=== PATIENT | male | born 1945 | race Caucasian/White ===

== ENCOUNTER 2018-05-26 12:58 | Observation (INO) | payer MEDICARE ==
[2018-05-26 13:31] LABS: #Basophils 0.1 thou/uL (0.0-0.2); #Eosinphils 0.2 thou/uL (0.0-0.7); #Monocytes 0.7 thou/uL (0.11-0.59); #Neutrophils 6.2 thou/uL (1.40-6.50); %Basophils 0.7 % (0.0-1.0); %Eosinophils 1.6 % (0.0-10.0); %Lymphocytes 29.5 % (21.0-51.0); %Monocytes 6.9 % (0.0-10.0); %Neutrophils 61.3 % (42.0-75.0); Hemoglobin 17.2 g/dL (14.0-18.0); Mean Corpuscular HGB CONC 33.1 g/dL (32.0-36.0); Mean Corpuscular Hemoglobin 30.3 pg (27.0-31.0); Mean Corpuscular Volume 91.4 fL (78.0-98.0); Mean Platelet Volume 7.5 fL (7.4-10.4); Platelet Count 259 thou/uL (130-400); RBC Distribution Width 12.5 % (11.5-14.5); White Blood Cell (WBC) Count 10.2 thou/uL (4.8-10.8)
[2018-05-26 13:51] LABS: ALT (SGPT) 24 U/L (8-55); AST (SGOT) 22 U/L (5-34); Albumin 4.1 g/dL (3.4-4.8); Alkaline Phosphatase 83 U/L (40-150); Anion Gap 14 mmol/L (10-20); BUN (Urea Nitrogen) 14 mg/dL (8.4-25.7); Bilirubin, Total 0.6 mg/dL (0.2-1.2); Calc. Creatinine Clearance 0 mL/min (70-130); Calcium 9.5 mg/dL (7.8-10.44); Carbon Dioxide 24 mmol/L (23-31); Chloride 103 mmol/L (98-107); Estimated GFR-MDRD 56; Globulin 3.5 g/dL (2.4-3.5); Glucose 173 mg/dL (83-110); Potassium 3.6 mmol/L (3.5-5.1); Protein, Total 7.6 g/dL (5.8-8.1); Sodium 137 mmol/L (136-145)
[2018-05-26] MEDS ORDERED: Lidocaine 1% w/Epinephrine 1:100K 20 ML VIAL ONE (15:41)
[2018-05-26] MEDS ORDERED: Ketorolac Tromethamine 30 MG/ML VIAL ONE (15:43)
[2018-05-26] MEDS ORDERED: HYDROcodone/Acetaminophen 10/325 mg Tablet ONE (15:43)
--- NOTE | 2018-05-26 15:50 | CT ---
HEAD CT WITHOUT CONTRAST: 05/26/18 HISTORY: Fall. Loss of consciousness. COMPARISON: None. TECHNIQUE: Noncontrast head CT is performed from skull base to skull vertex. FINDINGS: There is asymmetric hypoattenuation of the left tentorium suggesting a subdural hematoma. No parenchy mal hemorrhage. No parenchymal mass, mass effect or midline shift. Age appropriate atrophy. Cortical roberts-white matte r differentiation is preserved. Ventricles and sulci are patent and symmetric. White matter hypodensities or chronic small vessel isc hemic change. Intact calvarium. Small amounts of swelling and edema in the left parietal scalp near the posterior v ertex. Adequate aeration of the sinuses and mastoid air cells. IMPRESSION: 1. Left tentorial subdural hematoma. 2. Posttraumatic changes involving the posterior left parietal scalp near the vertex. Results of the study discussed with Dr. Pizarro 05/26/18 at 3:42 p.m. Code CR POS: [facility]
[2018-05-26 16:02] LABS: INR-International Normal Ratio 0.9; PTT 25.3 SEC (22.9-36.1); Prothrombin Time 12.6 SEC (12.0-14.7)
[2018-05-26 16:07] LABS: CKMB 1.2 ng/mL (0-6.6); Troponin I Less than 0.010 ng/mL (< 0.028)
--- NOTE | 2018-05-26 16:19 | RAD ---
PELVIS ONE VIEW: 05/26/18 HISTORY: Fall. Pain. COMPARISON: None. FINDINGS: There is a left acetabular posterior wall fracture. Contour of both femoral heads are maintained. Sac ral ala are preserved. IMPRESSION: Left posterior wall acetabular fracture. POS: [facility]
--- NOTE | 2018-05-26 18:17 | HP ---
DATE OF ADMISSION: 05/26/2018 REQUESTING PHYSICIAN: Loc Pizarro D.O. ATTENDING SURGEON: Buster Estrada M.D. CONSULTATIONS: Neurosurgery, Dr. Ramirez. HISTORY OF PRESENT ILLNESS: The patient is a 73-year-old man [facility] after waking up in his home with blood on the floor and lacerations to the posterior of his head. Patient last remembered taking his boots off and then waking up, the patient is unsure how lo ng he may have been unconscious. He underwent evaluation and examination here and was noted to have a subdural hematoma, at which time we were asked to evaluate the patient for admission and obtain zo rosurgical consultation. Currently, the patient denies headache, nausea, vomiting, dizziness. The l acerations on his posterior scalp had been repaired in the emergency department utilizing sutures and shekhar. ALLERGIES: None. CURRENT MEDICATIONS: The patient's family member was getting his list of medications, but he reports he takes 2 blood pressure medicines, cholesterol medicine, baby aspirin, and a medicine for his isabel cea. PAST SURGICAL HISTORY: Colon resection after perforation from colonoscopy and bladder resection. SOCIAL HISTORY: The patient lives independently at home. He drinks one beer maybe once or twice a w [facility]. He quit smoking more than 20 years ago. Denies drug use. REVIEW OF SYSTEMS: Ten-point review of systems negative as otherwise stated. PHYSICAL EXAMINATION: VITAL SIGNS: Blood pressure 143/80, heart rate 93, respirations 18, oxygen saturation 97% on room ai r, temperature is 97.9. GENERAL: The patient is resting comfortably in ER bed. He is awake, alert, and oriented x3. Glasgo w coma scale is 15. HEENT: Patient has two small lacerations that have been repaired on the posterior of his scalp utili zing sutures and shekhar for the different lacerations. Eyes: Extraocular motion intact. PERRLA bi laterally. Ears, atraumatic without discharge. Nose atraumatic without discharge. Oropharynx is cl ear. NECK: Nontender. Trachea is midline. No JVD. CHEST: Clear to auscultation with good inspiratory and expiratory effort. HEART: Regular rate and rhythm. ABDOMEN: Soft, flat, nontender with active bowel sounds. Pelvis is stable. EXTREMITIES: Neurovascularly intact x4. BACK: Atraumatic and nontender. LABORATORY DATA: White blood cell count 10.2, hemoglobin 17.2, hematocrit 52.0, platelets 259. Sodi um 137, potassium 3.6, chloride 103, CO2 of 24, BUN 14, creatinine 1.26, glucose 173. LFTs are unrem arkable. CK-MB is 1.2, troponin is less than 0.010. BNP is 10. RADIOGRAPHIC FINDINGS: CT of the brain without contrast shows a left tentorial subdural hematoma and post-traumatic changes involving the parietal scalp. AP pelvis shows a left posterior wall acetabul ar fracture. ASSESSMENT AND PLAN: 1. Status post fall. 2. Subdural hematoma. 3. Left acetabular fracture. 4. Syncope. Plan will be to admit the patient to the telemetry floor. We will get orthostatic vitals done here i n the emergency department. Obtain films of his left hip. Make orthopedic consultation. We have al so ordered a carotid ultrasound and the plan per Neurosurgery is to repeat his head CT in the morning or sooner as needed. The evaluation, examination, laboratory and radiographic findings will be disc ussed with Dr. Estrada after this dictation.
--- NOTE | 2018-05-26 18:33 | RAD ---
LEFT HIP TWO VIEWS: 05/26/18 INDICATION: Fall at home with positive loss of consciousness. COMPARISON: Prior pelvic radiograph dated 05/26/18. FINDINGS: There is a mild displaced posterior wall left acetabular fracture. No additional fracture is evident. IMPRESSION: Mild displaced posterior wall fracture of the left acetabulum. POS: [facility]
[2018-05-26 19:23] LABS: Bilirubin Negative (Negative); Blood, Urine Negative (Negative); Clarity CLEAR (Clear); Glucose, Urine (Dipstick) 500 mg/dL (Negative); Leukocyte Negative (Negative); Nitrite Negative (Negative); Protein, Urine (Dipstick) Negative (Neg-Trace); Specific Gravity, Urine 1.019 (1.002-1.036); Urobilinogen 0.2 mg/dL (0.2-1.0)
[2018-05-26] MEDS ORDERED: Ondansetron ODT 4 MG TAB PO PRN (19:52)
[2018-05-26] MEDS ORDERED: Ondansetron HCl/PF 4 MG/2 ML Vial IVP PRN (19:52)
[2018-05-26] MEDS ORDERED: traMADol HCl 50 MG TAB PO PRN (19:52)
[2018-05-26] MEDS ORDERED: Dextrose 50% Abboject 50 ML SYRINGE SLOW IVP PRN (19:52)
[2018-05-26] MEDS ORDERED: Dextrose 5% in Water 1,000 ML IV PRN (19:52)
[2018-05-26] MEDS: Famotidine 20 MG TAB PO SCH (20:53)
[2018-05-26] MEDS: Acetaminophen 1,000 MG in Premix Bag 1 BAG IVPB SCH (21:03)
--- NOTE | 2018-05-26 22:08 | CON ---
DATE OF CONSULTATION: 05/26/2018 HISTORY OF PRESENT ILLNESS: Mr. Botello is a 73-year-old male who was brought to the emergency department for a fall. Neurosurgery was consulted because a CT of the head found a small left-sided tentorial subdural. Upon entering the room , Mr. Botello is resting in his hospital room. He is alert and oriented to person , place, and time. He has a large laceration on the posterior aspect of his skull that is being sewn up and closed. Patient does not remember the fall. He does not know how it happened. He remembers visiting family earlier in the day. He remembers driving home and then he remembers being in the kitchen cleaning up blood on the back of his head. Patient states that he knows that he was in the entry way to his house because that is where he found his glasses. The patient denies any headache. He states that his head hurts where the laceration is, but there is no headache. He denies any dizziness or numbness or tingling anywhere in his body. He denies any weakness. He states that he did vomit while at home prior to coming to the emergency room. REVIEW OF SYSTEMS: Patient denies any fever or chills. Denies any dizziness, changes in vision, or changes in hearing. Denies any difficulty swallowing, sore throat, or abdominal pain. Denies chest pain, palpitations, nausea. No diarrhea, constipation, or difficulty with bladder. He has a large laceration on the posterior aspect of the skull. No numbness or tingling. MEDICATIONS: Amlodipine, hydrochlorothiazide, atorvastatin, pantoprazole, doxycycline, baby aspirin. ALLERGY: [id number] PILL, ZOLPIDEM, ROPINIROLE. PAST MEDICAL HISTORY: Hypertension, hypercholesterolemia. PAST SURGICAL HISTORY: Part of his bladder was removed. SOCIAL HISTORY: Patient lives in [place] in his home alone. He quit smoking 10 years ago. He has occasional beer and denies any other illicit drugs. He is a retired career development associate. PHYSICAL EXAMINATION: VITAL SIGNS: Temperature 97.6, heart rate 88, respiratory rate 20, blood pressure 121/82, O2 is 100% on room air. GENERAL: The patient is alert and oriented. He is resting comfortably in his hospital bed. He is nontoxic, afebrile, normotensive. HEENT: Head is normocephalic. He has a laceration that is closed on the posterior aspect of his head. Pupils are equal, round, reactive to light. Extraocular movements are intact. Hearing is intact. Moist mucous membranes. NECK: Normal range of motion. No tenderness to palpation. No masses or organomegaly. RESPIRATORY: Normal work of breathing room air. CARDIOVASCULAR: Regular rate and rhythm, normal S1, S2. MOTOR: The patient is moving all 4 extremities well, 5/5 strength bilaterally and cinetechnician deltoids, biceps, triceps, hip flexion, knee flexion, extension, dorsiflexion, plantar flexion. There is no asymmetry in sensation. NEUROLOGIC: The patient is alert and oriented to person, place, and time. Speech is spontaneous and fluent. Normal fund of knowledge. Normal long-term memory. He has some amnesia surrounding the event on the fall for a few minutes. Cranial nerves II-XII are tested and intact. There is no focal motor or sensory deficits. Normal coordination [id number]. IMAGING: CT head, left tentorial subdural hematoma, posttraumatic changes involving posterior left parietal scalp near the vertex. ASSESSMENT AND PLAN: Mr. Botello has sustained a traumatic subdural hematoma on the left tentorial area. He is currently awake, alert, does not have any focal neurologic or motor deficits. The patient, however, is unsure of the fall. Trauma service will admit this pt. to work up why he fell. We will monitor the patient overnight. Get a repeat CT in the morning. We have advised that there are no blood thinners should be given to the patient. We will get neuro checks every 4 hours. At this time, there is no surgical intervention necessary. NATHANAEL
[2018-05-26 23:02] VITALS: BMI 26.2
[2018-05-27] MEDS: Acetaminophen 1,000 MG in Premix Bag 1 BAG IVPB SCH ×2 (03:42→09:13)
[2018-05-27 04:54] LABS: #Basophils 0.1 thou/uL (0.0-0.2); #Eosinphils 0.1 thou/uL (0.0-0.7); #Lymphocytes 2.4 thou/uL (1.20-3.40); %Basophils 0.7 % (0.0-1.0); %Eosinophils 1.3 % (0.0-10.0); %Lymphocytes 27.8 % (21.0-51.0); %Monocytes 11.5 % (0.0-10.0); %Neutrophils 58.7 % (42.0-75.0); Hemoglobin 15.3 g/dL (14.0-18.0); Mean Corpuscular HGB CONC 33.6 g/dL (32.0-36.0); Mean Corpuscular Hemoglobin 30.9 pg (27.0-31.0); Mean Corpuscular Volume 92.1 fL (78.0-98.0); Mean Platelet Volume 7.7 fL (7.4-10.4); Platelet Count 230 thou/uL (130-400); RBC Distribution Width 12.6 % (11.5-14.5); Red Blood Cell (RBC) Count 4.93 mill/uL (4.70-6.10); White Blood Cell (WBC) Count 8.5 thou/uL (4.8-10.8)
[2018-05-27 05:08] LABS: Anion Gap 10 mmol/L (10-20); BUN (Urea Nitrogen) 13 mg/dL (8.4-25.7); Calc. Creatinine Clearance 72 mL/min (70-130); Calcium 8.7 mg/dL (7.8-10.44); Carbon Dioxide 31 mmol/L (23-31); Chloride 102 mmol/L (98-107); Estimated GFR-MDRD 63; Glucose 164 mg/dL (83-110); Potassium 3.5 mmol/L (3.5-5.1); Sodium 139 mmol/L (136-145)
[2018-05-27] MEDS ORDERED: rOPINIRole HCl 0.5 MG TAB PO PRN (08:21)
--- NOTE | 2018-05-27 08:34 | PRG ---
DATE OF SERVICE: 05/27/2018 I personally interviewed and examined the patient and agree with documentation of Mackenzie Navarro PA-C., dated 05/26/2018. Briefly, Nicolas Botello is a 73-year-old gentleman, who ran a few errands in the car yesterday, came to his garage, sat down to take his boots off and that is the last thing he remembers. He was brought to the emergency department after found down with lacerations to the scalp and a CT examination of th e brain showing a tentorial subdural hematoma. It is unknown what the etiology of the fall is. Ther e is some report that Mr. Botello got about a pelvic bony injury, but he has been out of bed all night walking back and forth to the restroom without significant pain. Mr. Botello does not remember any other events of the fall. Vital signs overnight have been stable. Blood pressure this morning is 153/72. On examination, Mr. Botello is wide awake. His eyes are already open. He is reading the menu for this morning. He is per fectly conversant. He has good cognitive function. He has normal cranial nerve function. There is no lateralizing motor or sensory deficits I can appreciate. I reviewed a CT scan of the brain this m orning. It shows decrease in the hyperdensity over the tentorium. Mr. Botello's neurological examination is normal. His CAT scan is improving, and from the Neurosurgery perspective, he can be discharged home. We will follow up with him in 2-3 weeks with another CAT ugo frankel
[2018-05-27] MEDS ORDERED: Amlodipine 5 mg/Benazepril 20 mg CAP PO SCH (09:00)
[2018-05-27] MEDS ORDERED: Atorvastatin Calcium 10 MG TAB PO SCH (09:00)
[2018-05-27] MEDS ORDERED: Doxycycline 100 MG CAP PO SCH (09:00)
[2018-05-27] MEDS ORDERED: Hydrochlorothiazide 25 MG TAB PO SCH (09:00)
[2018-05-27 09:04] LABS: Hemoglobin A1c 7.9 % (4.0-6.0)
[2018-05-27] MEDS: Famotidine 20 MG TAB PO SCH (09:32)
--- NOTE | 2018-05-27 09:48 | ULT ---
CAROTID ULTRASOUND WITH WEBSTER SCALE AND DOPPLER DUPLEX COLOR FLOW IMAGING SPECTRAL ANALYSIS PERFORMED: CLINICAL INDICATION: Syncope. FINDINGS: There is mild scattered atherosclerotic calcification of the carotid arteries. PEAK SYSTOLIC VELOCITY (CM/S): Right CCA 97 Left CCA 117 Right ICA 89 Left ICA 96 There is antegrade flow within the visualized bilateral vertebral arteries. IMPRESSION: 1. No hemodynamically significant stenosis of the right internal carotid artery. 2. No hemodynamically significant stenosis of the left internal carotid artery. POS: [facility]
--- NOTE | 2018-05-27 11:28 | CT ---
PRELIMINARY REPORT/[facility]/EMERGENTY AFTER-HOURS PROCEDURE CT Head Without Intravenous Contrast CLINICAL HISTORY: 73 years old, male; Condition or disease; Other: F/u sdh TECHNIQUE: Axial computed tomography images of the head/brain without intravenous contrast. COMPARISON: CT Brain WO Con 05/26/2018 3:33 PM FINDINGS: As before, small amount of subdural blood layering along the left tentorium. No significant interval change in appearance. No definite new hemorrhage in the interval. No significant mass effect or midline shift. Ventricle size is normal for age. No definite acute infarct by CT. No definite acute skull fracture. Included paranasal sinuses are essentially clear. IMPRESSION: As before, small amount of subdural blood layering along the left tentorium, not significantly change d. No definite new hemorrhage in the interval. Other findings discussed above. Thank you for allowing us to participate in the care of your patient. Dictated and Authenticated by: Jw Fontana MD 05/27/2018 5:30 AM Central Time ([place] & [place]) FINAL REPORT HEAD CT WITHOUT CONTRAST: COMPARISON: 05/26/2018. HISTORY: Followup subdural hematoma. FINDINGS: This report is in agreement with the preliminary report by [facility]. Interval placement of skin shekhar p rojecting over the left scalp. Stable left subdural hematoma, along the tentorium. No significant i nterval change. POS: [facility]
--- NOTE | 2018-05-27 11:32 | CT ---
PRELIMINARY REPORT/[facility]/EMERGENTY AFTER-HOURS PROCEDURE CT Pelvis Without Intravenous Contrast CLINICAL HISTORY: 73 years old, male; Condition or disease; Other: Left acetabular FX; Patient HX: Eval for left acetab ular FX TECHNIQUE: Axial computed tomography images of the pelvis without intravenous contrast. COMPARISON: No relevant prior studies available. FINDINGS: Well-defined lucency extends through the posterior rim of the left acetabulum. However, the appearanc e does not strongly suggest an acute fracture, as the opposing bony margins appear relatively smooth and well corticated. There is no associated soft tissue hematoma. This appearance may well represent sequela of old injury and/or be related to degenerative bony spurr ing. Regardless, I think an acute fracture involving this location is unlikely. Please correlate clinicall y. Eventual comparison with any available prior exams might be helpful. No visible fracture or dislocation of either femoral head or neck. If there is continued clinical suspicion for hip fracture, MRI could be more sensitive than CT for de tecting occult/subtle fractures. No definite fracture of the other included bones of the pelvis. No definite/significant diastases of either SI joint, or the symphysis pubis. Mild degenerative disc changes in the lower lumbar spine. Moderate to severe facet joint arthritis in the lower lumbar spine. The urinary bladder appears somewhat distended at the time of scanning. Please correlate clinically. Small posterior urinary bladder diverticula bilaterally. Larger on the left measures 20 mm. Smaller o n the right measures 15 mm. Small bilateral inguinal hernias, containing no bowel, larger on the left. IMPRESSION: Well-defined lucency extends through the posterior rim of the left acetabulum. However, the appearance does not strongly suggest an acute fracture. See above details/discussion. This appearance may well represent sequela of old injury and/or be related to degenerative bony spurr ing. No visible fracture or dislocation of either femoral head or neck. No definite fracture of the other included bones of the pelvis. Other findings discussed above. Thank you for allowing us to participate in the care of your patient. Dictated and Authenticated by: Jw Fontana MD 05/27/2018 7:10 AM Central Time ([place] & [place]) FINAL REPORT CT PELVIS WITHOUT CONTRAST: HISTORY: Left acetabular fracture. FINDINGS: This report is in agreement with the preliminary report by [facility] [[email or web address] There is a lucency on the posterior rim of the left acetabulum. However, CT features suggest a remote injury. No definite evidence of a n acute fracture. POS: [facility]
[2018-05-27 12:06] VITALS: TEMP 98.2
[2018-05-27 12:07] VITALS: BP 128/67
--- NOTE | 2018-05-27 14:25 | CON ---
DATE OF CONSULTATION: 05/27/2018 CONSULTING PHYSICIANS: Trauma staff and Suman Barnes M.D. HISTORY OF PRESENT ILLNESS: Mr. Botello is a 73-year-old male who suffered syncopal episode on the . The patient had a closed head injury with laceration of scalp, subdural hematoma. The patient is being currently worked up by Trauma team for syncopal episode. There is some question about possible left acetabular fracture. The patient is currently resting in bed comfortable, complaining of no hip pain, has been ambulating without difficulty. PAST MEDICAL HISTORY: Hypertension, hypercholesterolemia. PAST SURGICAL HISTORY: Bladder resection. ALLERGIES: No known drug allergies. MEDICATIONS: Please see admission list. SOCIAL HISTORY: One beer a couple of times a week, a former smoker, lives at home alone, [place] The patient is retired. His daughter and are at bedside. REVIEW OF SYSTEMS: Noncontributory. PHYSICAL EXAMINATION: VITAL SIGNS: 98.7, 78, 16, 97%, 150/79. GENERAL: Alert male in no acute distress, resting comfortably in bed. EXTREMITIES: Left lower extremity, the patient has no pain with range of motion of his left hip. Full range of motion, flexion, abduction, internal and external rotation. He is neurovascularly intact distally with stable knee, no effusion, no swelling, no ecchymosis or erythema noted in the left hip. In the patient's right hand, he has locking at the A1 jose, tenderness at the A1 jose. Neurovascularly intact, 2+ radial pulse, soft. No swelling. Soft compartments. LABORATORY AND X-RAY FINDINGS: Radiographs of his pelvis show a potential avulsion fracture versus a chronic degenerative change. CT scan through the pelvis showed what appears to be a chronic degenerative change of his posterior acetabulum versus chronic healed fracture. The patient's head is reduced as the fragment was not large enough to make hip unstable. The patient's hip was reduced without signs of damage and there was osteophyte formation. IMPRESSION: 1. Left hip degenerative changes. 2. Right trigger thumb. ASSESSMENT AND PLAN: The patient to weightbear as tolerated in his bilateral lower extremities. He can follow up and the patient was given my card to follow up with me in 2 weeks for his trigger thumb on his right hand, so we can perform an injection. [facility]
--- NOTE | 2018-05-27 15:28 | HP ---
DATE OF ADMISSION: 05/27/2018 CHIEF COMPLAINT: Fall. HISTORY: This is a 73-year-old male who woke last night with blood on the floor and a laceration on the back of his head. He does not recall falling. He was taken by ambulance to the hospital where beto myers was found to have a subdural hematoma. He denies any other complaints, no pain, no numbness, no sh ortness of breath. PAST MEDICAL HISTORY: Hypertension, hyperlipidemia, rosacea. PAST SURGICAL HISTORY: He had a colon repair after a perforation from colonoscopy. He has had a joe dder resection. SOCIAL HISTORY: He drinks occasional beer. No tobacco. He is retired. FAMILY HISTORY: Noncontributory. ALLERGIES: He has no known drug allergies. MEDICATIONS: He is on blood pressure medicine and hyperlipidemia medicine. PHYSICAL EXAMINATION: VITAL SIGNS: Temperature 97.7, pulse 70, blood pressure 150/79. GENERAL: He is awake, alert, does not appear to be in any distress. HEENT: He has got shekhar in his scalp. NECK: Supple, nontender. Trachea midline. No facial trauma. LUNGS: Clear. CHEST: Chest wall is nontender. ABDOMEN: Soft, nondistended, slightly obese. No palpable masses. No tenderness. EXTREMITIES: Unremarkable. He is not tender in the left groin. IMAGING: He had a plain film of the left hip showing an acetabular fracture. Carotid study shows no significant stenosis. Brain study shows a subdural hematoma on the left tentorium, which is stable from yesterday. CT of the pelvis shows that this acetabular fracture is old. On further interrogati on, he says he remembers getting kicked as a teenager by a horse in his left groin. LABORATORY DATA: His white count is 8.5, H and H 15 and 45, platelet count 230,000. Electrolytes ar e fine. ASSESSMENT: Fall with subdural hematoma, stable. PLAN: Per Neurosurgery.
== END 2018-05-27 13:53 | disposition home or self-care (01) ==
LOC: ERS 12:58 → EDBD 19:45 → 2SW 19:45
PROVIDERS: ADMIT Surgery; ATTEND Surgery
DX: S06.5X9A Traumatic subdural hemorrhage with loss of consciousness of unspecified duration, initial encounter (principal); S01.81XA Laceration without foreign body of other part of head, initial encounter; L71.9 Rosacea, unspecified; E78.00 Pure hypercholesterolemia, unspecified; M65.311 Trigger thumb, right thumb; I10 Essential (primary) hypertension; Z87.891 Personal history of nicotine dependence; Z79.82 Long term (current) use of aspirin; Z79.899 Other long term (current) drug therapy; Z90.49 Acquired absence of other specified parts of digestive tract; Z90.6 Acquired absence of other parts of urinary tract; Z88.8 Allergy status to other drugs, medicaments and biological substances; W19.XXXA Unspecified fall, initial encounter
CPT/HCPCS: 12002; 70450 ×2; 72170; 72192; 73502; 80048; 80053; 81003; 82553; 82962; 83036; 83735; 83880; 84484; 85025 ×2; 85610; 85730; 93005; 93880; 96374; 96376; 97139; 99285; G0378 ×2; G8978; G8979; G8980; 36415; 36416; J0131; J1885; J2001

== ENCOUNTER 2018-06-13 08:04 | Outpatient (CLI) | payer MEDICARE ==
--- NOTE | 2018-06-13 09:29 | CT ---
NONCONTRAST CT HEAD: Date: 06/13/18 HISTORY: Patient fell 3 weeks ago, post-traumatic subdural hematoma. COMPARISON: Studies on 05/26/18 and 05/27/18. FINDINGS: Increased density seen along the left tentorium on prior studies, again present but less perceptible compared to the prior exam. No new areas of hemorrhage are seen. There is no evidence of an acute inf arction, mass effect, or midline shift. Small remote lacunar infarctions versus dilated perivascular spaces and inferior aspect left basal ganglia are again present. Ventricular system is normal in size , shape, and position. The previously noted skin shekhar have been removed. There is minimal scalp so ft tissue swelling in the region of the previously noted small scalp hematoma on prior exam. Mild irr egularity of the scalp in this region is seen, likely related to prior laceration and scarring. No ot her interval change. IMPRESSION: 1. The increased density along the left tentorium is less conspicuous on today's examination, sugges ting evolutionary changes in blood products. The increased density along the left tentorium remains a symmetric compared to the right. No new areas of hemorrhage are identified. 2. Improvement in left scalp hematoma with removal of skin clips in the left parietal scalp. POS: [facility]
== END 2018-06-13 08:05 | disposition home or self-care (01) ==
LOC: TBSIIMAG 08:04
PROVIDERS: ATTEND Neurological Surgery
DX: S06.5X0A Traumatic subdural hemorrhage without loss of consciousness, initial encounter (principal)
CPT/HCPCS: 70450

== ENCOUNTER 2022-02-28 15:46 | Outpatient (CLI) | payer MEDICARE | END 2022-02-28 15:47 | disposition home or self-care (01) | LOC: SCSRAD 15:46 | PROVIDERS: ATTEND Family Medicine | DX: M54.50 Low back pain, unspecified (principal); M47.816 Spondylosis without myelopathy or radiculopathy, lumbar region | CPT/HCPCS: 72100 ==

== ENCOUNTER 2022-03-17 07:31 | Outpatient (CLI) | payer MEDICARE | END 2022-03-17 07:32 | disposition home or self-care (01) | LOC: SCSMRI 07:31 | PROVIDERS: ATTEND Family Medicine | DX: M53.3 Sacrococcygeal disorders, not elsewhere classified (principal); S32.2XXA Fracture of coccyx, initial encounter for closed fracture; M48.061 Spinal stenosis, lumbar region without neurogenic claudication; M48.07 Spinal stenosis, lumbosacral region; W19.XXXD Unspecified fall, subsequent encounter | CPT/HCPCS: 72148 ==

== ENCOUNTER 2022-10-18 14:04 | Outpatient (CLI) | payer MEDICARE | END 2022-10-18 14:05 | disposition home or self-care (01) | LOC: SCSRAD 14:04 | PROVIDERS: ATTEND Family Medicine | DX: J44.9 Chronic obstructive pulmonary disease, unspecified (principal) | CPT/HCPCS: 71046 ==